=== PATIENT | female | born 1995 | race Caucasian/White ===

== ENCOUNTER 2017-03-03 15:17 | Emergency (ER) | payer BC ==
[~2017-03-03] VITALS: Ht 170.2 cm; Wt 65.4 kg
[2017-03-03 15:21] VITALS: TEMP 36.4; Ht 170.2 cm; Wt 65.4 kg
--- NOTE | 2017-03-03 15:41 | EMERGENCY ROOM VISIT NOTE ---
History First contact with patient: 15:31 Chief Complaint: URINARY SYMPTOMS Stated Complaint: UTI SYMPTOMS, LEFT KIDNEY PAIN Nursing Triage Summary: Burning, pain, urgency, frequency with urination x 4 days. Left flank pain. History of Present Illness The patient is a 21 year old female who presents to the Emergency Room via private vehicle with complaints of "burning, pain, urgency, frequency with urination 4 days with left flank pain". The patient states that for 4 days now she has had the above-mentioned symptoms. She states she has a history of UTIs. She states however this one is different in that now today she begins with left flank pain. She is concerned she may have a kidney infection. There has been no fevers, chills, nausea or vomiting. She denies any chance of sexually transmitted infection or . Review of Systems A complete 6-point Review of Systems was discussed with the patient, with pertinent positives and negatives listed in the History of Present Illness. All remaining Review of Systems questions can be considered negative unless otherwise specified. Past Medical/Surgical History UTI Family History No pertinent. Social History Smoking Status: Never Smoker Pt. lives locally Current/Historical Medications Scheduled Etonogestrel (Nexplanon), 68 MG INTRAD UD Multivitamin (Multivitamin), 1 TAB PO DAILY Sulfa/Trimethoprim (Bactrim Ds 800MG/160MG), 1 TAB PO BID Physical Exam Vital Signs Date Time Temp Pulse Resp B/P (MAP) Pulse Ox O2 Delivery O2 Flow Rate FiO2 03/03/17 17:30 76 18 112/73 97 03/03/17 15:21 36.4 88 18 124/87 99 Room Air Physical Exam VITAL SIGNS - Vital signs and nursing notes were reviewed. Stable. Afebrile. Normotensive. GENERAL -21-year-old female appearing her stated age who is in no acute distress. Communicates well with provider and answers questions appropriately. SKIN - Without rashes. No petechial rashes. HEAD - NC/AT. EYES - Sclera anicteric. EARS - No deformities of external structures noted on gross examination bilaterally. NOSE - Midline and without cyanosis. No epistaxis or purulent drainage noted. Septum midline without deviation or septal hematoma noted. MOUTH/OROPHARYNX - Without perioral cyanosis. LUNGS - Chest wall symmetric without accessory muscle use, intercostals retractions, or central cyanosis. Normal vesicular breath sounds CTA B/L. No wheezes, rales, or rhonchi appreciated. CARDIAC - RRR with S1/S2. No murmur, rubs, or gallops appreciated. ABDOMEN - Abdominal contour normal without pulsations or visible masses. BS normoactive all four quadrants. Min LLQ tenderness and L + CVA tenderness. No palpable masses, hepatosplenomegaly, or ascites noted. Medical Decision & Procedures ER Provider Diagnostic Interpretation: RETROPERITONEAL COMPLETE CLINICAL HISTORY: 21 years-old Female presenting with dysuria, frequency, x 4 days now L flank pain. . TECHNIQUE: Real-time grayscale and limited color Doppler ultrasound imaging of the kidneys and bladder was performed. COMPARISON: None. FINDINGS: Right kidney: Normal echogenicity. Right kidney measures 10.6 cm. No hydronephrosis. No convincing evidence of calculus or mass. Normal perfusion. Left kidney: Normal echogenicity. Left kidney measures 10.4 cm. No hydronephrosis. No convincing evidence of calculus or mass. Normal perfusion. Bladder: No bladder wall thickening. Bilateral ureteral jets present. Other: None. IMPRESSION: 1. Normal renal ultrasound. No obstruction. Electronically signed by: Lemuel Lee M.D. 03/03/2017 5:05 PM Dictated Date/Time: 03/03/2017 5:04 PM Laboratory Results Test 03/03/17 15:25 Urine Color YELLOW Urine Appearance CLEAR (CLEAR) Urine pH 7.5 (4.5-7.5) Urine Specific [place] 1.008 (1.000-1.030) Urine Protein NEG (NEG) Urine Glucose (UA) NEG (NEG) Urine Ketones NEG (NEG) Urine Occult Blood TRACE (NEG) Urine Nitrite NEG (NEG) Urine Bilirubin NEG (NEG) Urine Urobilinogen NEG (NEG) Urine Leukocyte Esterase MODERATE (NEG) Urine WBC (Auto) /hpf (0-5) Urine RBC (Auto) /hpf (0-4) Urine Hyaline Casts (Auto) /lpf (0-5) Urine Epithelial Cells (Auto) /lpf (0-5) Urine Bacteria (Auto) (NEG) Urine RBC 0-4 /hpf (0-4) Urine WBC 5-10 /hpf (0-5) Urine Epithelial Cells 5-10 /lpf (0-5) Urine Renal Epithelial Cells /lpf (0-5) Urine Bacteria 1+ (NEG) Urine Test NEG (NEG) Medications Administered Medications (Trade) Dose Ordered Sig/Charles Route Start Time Stop Time Status Last Admin Dose Admin Trimethoprim/ Sulfamethoxazole (Sulfameth/ Trimeth Ds 800/ 160MG Home Pack) 1 homepack UD STAT PO 03/03/17 17:10 03/03/17 17:12 DC 03/03/17 17:29 1 HOMEPACK Trimethoprim/ Sulfamethoxazole (Septra Ds 800/ 160MG Tab) 1 tab NOW STAT PO 03/03/17 17:10 03/03/17 17:12 DC 03/03/17 17:29 1 TAB Medical Decision Patient was seen and evaluated as above. She presents to us today with 4 days of dysuria, frequency, hesitancy and now left flank pain beginning today. She has a history of UTIs. There is been no vomiting. Urinalysis was obtained as well as retroperitoneal ultrasound secondary to the onset of flank pain to rule out infected renal calculi. Urinalysis reveals trace occult blood, moderate leukocytes, 5-10 white blood cells and epithelial cells as well as 1+ urine bacteria. There are no nitrites. I do suspect this is likely beginning UTI. Urine test is negative. Renal ultrasound is negative. She denied chance of STI. Given the subjective examination I believe that she is likely experiencing UTI as well as in conjunction with the clinical assessment. She' ll be given Bactrim as she has had this in the past without reaction and with success. She was given her first dose here as well as a home pack with [facility] pharmacy. She appears stable for outpatient management. I suspect UTI do not suspect pyelonephritis. She is to follow-up with her family doctor. She was educated upon management, educated upon worrisome symptoms in which to return, had questions about discharge, and was discharged home in good condition. In evaluation treatment this patient following differential diagnoses were entertained: STI, UTI, pyelonephritis, renal calculi, among others. Impression Primary Impression: Urinary tract infection Departure Information Dispostion Home / Self-Care Condition GOOD Prescriptions Sulfa/Trimethoprim (Bactrim Ds 800MG/160MG) Tab 1 TAB PO BID for 6 Days, #12 TAB Prov: Usama Parr PA-C 03/03/17 Referrals Francis Harris M.D. (PCP) Patient Instructions My [facility] Additional Instructions You have been treated in the Emergency Department for a Urinary Tract Infection (UTI). You have been prescribed Bactrim to be taken every 12 hours. This is an antibiotic. All antibiotics have the potential to cause diarrhea. Stop this medication and contact a medical provider if you were to develop any significant adverse side effects including: wheezing, shortness of breath, passing out, vomiting, or a diffuse rash. Always take antibiotics as directed and COMPLETE the ENTIRE course regardless of the improvement of your symptoms. For pain control, you can use the following [id number] medicines (if >12 yo): - Regular strength (325mg/tab) Tylenol (acetaminophen) 2 tabs every 4-6 hours as needed. Do not exceed 12 tablets in a 24 hour period. Avoid taking more than 3 grams (3000 mg) of Tylenol per day. This includes any other sources of acetaminophen you may take on a regular basis. - Regular strength (200 mg/tab) Advil (ibuprofen) 1-2 tabs every 4-6 hours as needed. Do not exceed a dose of 3200 mg per day. Return to the emergency department if your symptoms worsen despite treatment course outlined above. Drink plenty of water and stay well hydrated. As with any trip to the Emergency Department, you should follow-up with your Primary Care Provider from today's visit. Return to the emergency department if your symptoms persist despite treatment plan outlined above or if the following symptoms occur: increased fevers, chills , low back pain, nausea/vomiting, or blood in your urine.
[2017-03-03] MEDS ORDERED: ETON1IMP2 INTRAD (15:50)
[2017-03-03] MEDS ORDERED: MULT-506 PO (15:50)
[2017-03-03 16:18] LABS: URINE APPEARANCE CLEAR (CLEAR); URINE BILIRUBIN NEG (NEG); URINE COLOR YELLOW; URINE NITRITE NEG (NEG); URINE PH 7.5 (4.5-7.5); URINE SPECIFIC GRAVITY 1.008 (1.000-1.030); UROBILINOGEN NEG (NEG)
[2017-03-03 16:19] LABS: MANUAL MICROSCOPIC REQUIRED? YES; REVIEW REQ? NO
[2017-03-03 16:30] LABS: URINE BACTERIA 1+ (NEG); URINE RBC 0-4 /hpf (0-4)
[2017-03-03 16:31] LABS: ZZUR CULT IF INDIC CLEAN CATCH YES
--- NOTE | 2017-03-03 17:06 | DIAGNOSTIC IMAGING REPORT ---
RETROPERITONEAL COMPLETE CLINICAL HISTORY: 21 years-old Female presenting with dysuria, frequency, x 4 days now L flank pain. . TECHNIQUE: Real-time grayscale and limited color Doppler ultrasound imaging of the kidneys and bladder was performed. COMPARISON: None. FINDINGS: Right kidney: Normal echogenicity. Right kidney measures 10.6 cm. No hydronephrosis. No convincing evidence of calculus or mass. Normal perfusion. Left kidney: Normal echogenicity. Left kidney measures 10.4 cm. No hydronephrosis. No convincing evidence of calculus or mass. Normal perfusion. Bladder: No bladder wall thickening. Bilateral ureteral jets present. Other: None. IMPRESSION: 1. Normal renal ultrasound. No obstruction. Electronically signed by: Lemuel Lee M.D. 03/03/2017 5:05 PM Dictated Date/Time: 03/03/2017 5:04 PM
[2017-03-03] MEDS ORDERED: SULFAMETHOXAZOLE/TRIMETHOPRIM DS 800/160MG TAB PO STA (17:10)
[2017-03-03] MEDS ORDERED: SEPTRA DS HOME PACK 1 EA VIAL PO STA (17:10)
[2017-03-03] MEDS ORDERED: PHENAZOPYRIDINE HOME PACK 200 MG VIAL PO STA (17:10)
[2017-03-03] MEDS ORDERED: SULF800T23 PO (17:16)
[2017-03-03 17:30] VITALS: BP 112/73; PULSE 76; O2SAT 97
== END 2017-03-03 17:34 | disposition home or self-care (01) ==
LOC: C.EDB 15:18 → C.EDD 17:34
DX: N39.0 Urinary tract infection, site not specified (principal); Z87.440 Personal history of urinary (tract) infections; Z79.899 Other long term (current) drug therapy